=== PATIENT | female | born 1975 | race Two or more races ===

== ENCOUNTER 2019-09-30 16:28 | Inpatient (IN) | payer OTHER ==
[~2019-09-30] VITALS: Ht 13.7 cm; Wt 141.1 kg
[~2019-09-30 16:28] MED LIST: COZAAR100 MG
[2019-10-02] MEDS ORDERED: SIMETHICONE125 M1 PO (08:37)
== END 2019-10-02 11:16 | disposition home or self-care (01) | DRG 735 ==
LOC: O/R 10-01 07:42 → OB/GYN 10-01 15:20
PROVIDERS: ADMIT Obstetrics & Gynecology Gynecologic Oncology
PROC: 0UT94ZZ Resection of Uterus, Percutaneous Endoscopic Approach (ICD-10-PCS; 2019-10-01)
PROC: 0UT24ZZ Resection of Bilateral Ovaries, Percutaneous Endoscopic Approach (ICD-10-PCS; 2019-10-01)
PROC: 0UT74ZZ Resection of Bilateral Fallopian Tubes, Percutaneous Endoscopic Approach (ICD-10-PCS; 2019-10-01)
PROC: 07TC4ZZ Resection of Pelvis Lymphatic, Percutaneous Endoscopic Approach (ICD-10-PCS; principal; 2019-10-01 18:30)
DX: D25.1 Intramural leiomyoma of uterus (principal); N72 Inflammatory disease of cervix uteri; N83.02 Follicular cyst of left ovary; N83.01 Follicular cyst of right ovary; N85.01 Benign endometrial hyperplasia; N83.291 Other ovarian cyst, right side

== ENCOUNTER 2023-10-26 07:09 | Emergency (ER) | payer OTHER ==
[~2023-10-26] VITALS: Ht 157.5 cm; Wt 163.3 kg
[~2023-10-26 07:09] MED LIST changes: +SIMETHICONE125 M1 PO
[2023-10-26] MEDS ORDERED: HYDROCHLOROTHIA50 MG PO (07:43)
== END 2023-10-26 10:29 | disposition home or self-care (01) ==
LOC: ER 07:09
DX: R05.9 Cough, unspecified (principal); Z20.822 Contact with and (suspected) exposure to COVID-19